=== PATIENT | male | born 1990 | race Caucasian/White ===

== ENCOUNTER 2025-07-07 06:54 | Emergency (ER) | payer SELFPAY ==
--- NOTE | ~2025-07-07 | CT_ITS ---
EXAMINATION: CT abdomen pelvis w con DATE: 07/07/2025 08:09 INDICATION: Lower abdominal pain, nausea, vomiting and diarrhea TECHNIQUE: Computed tomography (CT) of the abdomen and pelvis was performed with 100 mL Omnipaque-350 intravenous contrast. Automated exposure control and iterative reconstruction technique were employed. The dose-length product was 466.12 mGy-cm. COMPARISON: None FINDINGS: Lung bases are clear. Heart size is normal. No pericardial or pleural effusion. Focal hepatic steatosis ligamentum teres. Gallbladder, spleen, pancreas, bilateral adrenal glands and kidneys are normal. Liquid stool in the colon consistent with provided history of diarrhea. No abnormal bowel wall thickening or obstruction. Normal appendix. Bladder is normal. No free intraperitoneal gas or fluid. No pathologically enlarged abdominal or pelvic lymphadenopathy. Mild lower thoracic spondylosis. IMPRESSION: 1. Diarrhea. No other acute intra-abdominal/pelvic process with normal appendix. Reviewed, dictated and finalized at location A. IMPRESSION: 1. Diarrhea. No other acute intra-abdominal/pelvic process with normal appendix .
[2025-07-07 06:54] VITALS: BP 130/87; PULSE 60; RESP 18; TEMP 36.9; O2SAT 98
--- NOTE | 2025-07-07 07:13 | ED.ABDPAIN ---
HPI - Abdominal Pain General Chief Complaint: Abdominal Pain <Jasmine Womack MD - Last Filed: 07/07/25 08:59> Stated Complaint: abdominal pain <Jasmine Womack MD - Last Filed: 07/07/25 08:59> Time Seen by Provider: 07/07/25 07:13 <Jasmine Womack MD - Last Filed: 07/07/25 08:59> Source: patient and family <Jasmine Womack MD - Last Filed: 07/07/25 08:59> Mode of arrival: ambulatory <Jasmine Womack MD - Last Filed: 07/07/25 08:59> Limitations: no limitations <Jasmine Womack MD - Last Filed: 07/07/25 08:59> History of Present Illness HPI narrative: 34 years old white male came to the ED by private car with his mom complaining of diffuse lower abdominal pain started 2 days ago, sharp, stabbing, steady, no aggravating or relieving factors, associated with nausea and vomiting. He denies any fever or chills or upper respiratory symptoms. Patient denies any history of abdominal surgery History of bipolar and ADHD. Patient does not smoke cigarette, does not drink alcohol, uses marijuana almost daily. <Jasmine Womack MD - Last Filed: 07/07/25 08:59> Related Data Allergies/Adverse Reactions: Allergies Allergy/AdvReac Type Severity Reaction Status Date / Time No Known Allergies Allergy Verified 07/07/25 07:21 <Jasmine Womack MD - Last Filed: 07/07/25 08:59> Review of Systems Review of Systems: All systems reviewed & are unremarkable except as noted in HPI and below <Jasmine Womack MD - Last Filed: 07/07/25 08:59> Exam Narrative: General appearance: Well-developed, well-nourished Skin: Normal color Head: Normocephalic, nontraumatic Eyes: Clear conjunctiva ENT: Oropharynx normal, ears normal, nose normal Neck: Supple, nontender Chest and respiratory: Airway patent, no respiratory distress, no accessory muscle use Heart: Regular rate/rhythm Abdomen: Soft, Mild diffuse tenderness lower abdomen, no guarding or rebound, no organomegaly, quiet bowel sounds Vascular: Normal peripheral pulses, normal capillary refill. Musculoskeletal: Normal range of motion, nontender back Neurologic: Alert and oriented ?3, [employer] is normal as tested, no gross motor deficit <Jasmine Womack MD - Last Filed: 07/07/25 08:59> Course Consultations Consultation #1: PATIENT CARE TURNED OVER TO DR. Moreau AT SHIFT CHANGE, AWAITING LABS, IMAGING, DISPOSITION. PATIENT BEEN RESTING QUIETLY IN THE EMERGENCY ROOM WITHOUT ANY ISSUES OR PROBLEMS. <Jasmine Womack MD - Last Filed: 07/07/25 08:59> Date: 07/07/25 <Jasmine Womack MD - Last Filed: 07/07/25 08:59> Time: 09:00 <Jasmine Womack MD - Last Filed: 07/07/25 08:59> Vital Signs Vital signs: Vital Signs Temperature 36.9 C 07/07/25 06:54 Pulse Rate 60 07/07/25 06:54 Respiratory Rate 18 07/07/25 06:54 Blood Pressure 130/87 07/07/25 06:54 Pulse Oximetry 98 07/07/25 06:54 Oxygen Delivery Room Air 07/07/25 06:54 Temperature 36.9 C 07/07/25 06:54 Pulse Rate 62 07/07/25 09:15 Respiratory Rate 16 07/07/25 09:15 Blood Pressure 114/65 07/07/25 09:15 Pulse Oximetry 99 07/07/25 09:15 Oxygen Delivery Room Air 07/07/25 09:15 <Jasmine Womack MD - Last Filed: 07/07/25 08:59> Vital Signs Temperature 36.9 C 07/07/25 06:54 Pulse Rate 60 07/07/25 06:54 Respiratory Rate 18 07/07/25 06:54 Blood Pressure 130/87 07/07/25 06:54 Pulse Oximetry 98 07/07/25 06:54 Oxygen Delivery Room Air 07/07/25 06:54 Temperature 36.9 C 07/07/25 06:54 Pulse Rate 62 07/07/25 09:15 Respiratory Rate 16 07/07/25 09:15 Blood Pressure 114/65 07/07/25 09:15 Pulse Oximetry 99 07/07/25 09:15 Oxygen Delivery Room Air 07/07/25 09:15 <Dung Ott MD - Last Filed: 07/07/25 10:53> MDM - Abdominal Pain MDM Narrative Medical decision making narrative: patient came to the ED with lower abdominal pain Vital signs are stable Physical examination showing [id number] tenderness of the lower abdomen otherwise insignificant Differential diagnosis includes urinary tract infection, kidney stone, diverticulitis, colitis, constipation, appendicitis, anxiety like symptoms, dehydration or electrolyte imbalance <Jasmine Womack MD - Last Filed: 07/07/25 08:59> Differential Diagnosis Differential diagnosis: Likely other ( as above) <Jasmine Wmoack MD - Last Filed: 07/07/25 08:59> Lab Data Result diagrams: 07/07/25 07:28 07/07/25 07:28 <Jasmine Womack MD - Last Filed: 07/07/25 08:59> Labs: Lab Results 07/07/25 07/07/25 07/07/25 Range/Units 07:26 07:28 08:33 WBC 8.1 (4.8-10.8) K/mm3 RBC 5.16 (4.70-6.10) M/mm3 Hgb 14.8 (14.0-18.0) g/dL Hct 42.4 (40.0-54.0) % MCV 82.2 (78.0-102.0) fL MCH 28.7 (27.0-31.0) pg MCHC 34.9 (32-36) g/dL RDW 11.2 L (11.6-14.4) % Plt Count 281 (150-420) K/mm3 MPV 10.4 (8.7-11.0) fl Immature Gran % (Auto) 0.4 H (0.0-0.0) % Neut % (Auto) 73.7 H (50.0-70.0) % Lymph % (Auto) 19.8 (18.0-42.0) % Frederick % (Auto) 5.7 (2.0-11.0) % Eos % (Auto) 0.2 L (1.0-6.0) % Baso % (Auto) 0.2 (0.0-1.0) % Lymph # (Auto) 1.60 (1.10-4.50) K/mm3 Frederick # (Auto) 0.46 (0.10-0.90) K/mm3 Eos # (Auto) 0.02 (0.02-0.50) K/mm3 Baso # (Auto) 0.02 (0.00-0.10) K/mm3 Abs Immat Gran (auto) 0.03 H (0.00-0.00) K/mm3 Absolute Neuts (auto) 5.96 (1.70-7.20) K/mm3 Absolute Nucleated RBC 0.00 (0.00-0.00) K/mm3 Nucleated RBC % 0.0 (0-0.0) % Sodium 140 (137-145) mmol/L Potassium 3.6 (3.4-5.0) mmol/L Chloride 105 (98-107) mmol/L Carbon Dioxide 24 (22-30) mmol/L Anion Gap 11 (4-12) mmol/L BUN 10 (9-20) mg/dL Creatinine 0.98 (0.7-1.3) mg/dL Estim Creat Clear Calc 102 ml/min Estimated GFR > 60 (59 - ) Glucose 120 H (65-110) mg/dL Calculated Osmolality 290 (285-295) mOsm/kg Calcium 10.2 (8.4-10.2) mg/dL Total Bilirubin 1.0 (0.2-1.3) mg/dL AST 24 (17-59) U/L ALT 18 (6-50) U/L Alkaline Phosphatase 67 (38-126) U/L Total Protein 7.3 (6.3-8.2) g/dL Albumin 4.5 (3.5-5.1) g/dL Lipase 189 (23-300) U/L Urine Color Yellow (Yellow) Urine Appearance Clear (Clear) Urine pH 7.5 (5.0-8.0) Ur Specific [place] 1.010 (1.010-1.020) Urine Protein Negative (Negative) Urine Glucose (UA) Negative (Negative) Urine Ketones 1+ H (Negative) Ur Blood (Man) Negative (Negative) Urine Nitrate Negative (Negative) Urine Bilirubin Negative (Negative) Urine Urobilinogen 0.2 (0.2-1.0) mg/dL Leukocyte Esterase Rfl Negative (Negative) GABRIELA/UL Influenza A (RT-PCR) Negative (Negative) Influenza B (RT-PCR) Negative (Negative) RSV (RT-PCR) Negative (Negative) SARS-CoV-2 RNA (RT-PCR) Negative (Negative) <Jasmine Womack MD - Last Filed: 07/07/25 08:59> Lab Results 07/07/25 07/07/25 07/07/25 Range/Units 07:26 07:28 08:33 WBC 8.1 (4.8-10.8) K/mm3 RBC 5.16 (4.70-6.10) M/mm3 Hgb 14.8 (14.0-18.0) g/dL Hct 42.4 (40.0-54.0) % MCV 82.2 (78.0-102.0) fL MCH 28.7 (27.0-31.0) pg MCHC 34.9 (32-36) g/dL RDW 11.2 L (11.6-14.4) % Plt Count 281 (150-420) K/mm3 MPV 10.4 (8.7-11.0) fl Immature Gran % (Auto) 0.4 H (0.0-0.0) % Neut % (Auto) 73.7 H (50.0-70.0) % Lymph % (Auto) 19.8 (18.0-42.0) % Frederick % (Auto) 5.7 (2.0-11.0) % Eos % (Auto) 0.2 L (1.0-6.0) % Baso % (Auto) 0.2 (0.0-1.0) % Lymph # (Auto) 1.60 (1.10-4.50) K/mm3 Frederick # (Auto) 0.46 (0.10-0.90) K/mm3 Eos # (Auto) 0.02 (0.02-0.50) K/mm3 Baso # (Auto) 0.02 (0.00-0.10) K/mm3 Abs Immat Gran (auto) 0.03 H (0.00-0.00) K/mm3 Absolute Neuts (auto) 5.96 (1.70-7.20) K/mm3 Absolute Nucleated RBC 0.00 (0.00-0.00) K/mm3 Nucleated RBC % 0.0 (0-0.0) % Sodium 140 (137-145) mmol/L Potassium 3.6 (3.4-5.0) mmol/L Chloride 105 (98-107) mmol/L Carbon Dioxide 24 (22-30) mmol/L Anion Gap 11 (4-12) mmol/L BUN 10 (9-20) mg/dL Creatinine 0.98 (0.7-1.3) mg/dL Estim Creat Clear Calc 102 ml/min Estimated GFR > 60 (59 - ) Glucose 120 H (65-110) mg/dL Calculated Osmolality 290 (285-295) mOsm/kg Calcium 10.2 (8.4-10.2) mg/dL Total Bilirubin 1.0 (0.2-1.3) mg/dL AST 24 (17-59) U/L ALT 18 (6-50) U/L Alkaline Phosphatase 67 (38-126) U/L Total Protein 7.3 (6.3-8.2) g/dL Albumin 4.5 (3.5-5.1) g/dL Lipase 189 (23-300) U/L Urine Color Yellow (Yellow) Urine Appearance Clear (Clear) Urine pH 7.5 (5.0-8.0) Ur Specific [place] 1.010 (1.010-1.020) Urine Protein Negative (Negative) Urine Glucose (UA) Negative (Negative) Urine Ketones 1+ H (Negative) Ur Blood (Man) Negative (Negative) Urine Nitrate Negative (Negative) Urine Bilirubin Negative (Negative) Urine Urobilinogen 0.2 (0.2-1.0) mg/dL Leukocyte Esterase Rfl Negative (Negative) GABRIELA/UL Influenza A (RT-PCR) Negative (Negative) Influenza B (RT-PCR) Negative (Negative) RSV (RT-PCR) Negative (Negative) SARS-CoV-2 RNA (RT-PCR) Negative (Negative) <Dung Ott MD - Last Filed: 07/07/25 10:53> Imaging Data Attestation: I personally reviewed and interpreted this imaging study as follows: <Dung Ott MD - Last Filed: 07/07/25 10:53> Radiologist's impression: ITS Impressions Abdomen/Pelvis CT 07/07/25 10:30 IMPRESSION: 1. Diarrhea. No other acute intra-abdominal/pelvic process with normal appendix. <Jasmine Womack MD - Last Filed: 07/07/25 08:59> ITS Impressions Abdomen/Pelvis CT 07/07/25 10:30 IMPRESSION: 1. Diarrhea. No other acute intra-abdominal/pelvic process with normal appendix. <Dung Ott MD - Last Filed: 07/07/25 10:53> Critical Care Time Critical Care Time Critical Care Time: No <Jasmine Womack MD - Last Filed: 07/07/25 08:59> Discharge Plan Discharge Clinical Impression: Gastroenteritis, Acute dehydration <Jasmine Womack MD - Last Filed: 07/07/25 08:59> Patient Disposition: Home <Jasmine Womack MD - Last Filed: 07/07/25 08:59> Condition: Stable <Jasmine Womack MD - Last Filed: 07/07/25 08:59> Instructions: Dehydration (ED), Gastroenteritis (ED) <Jasmine Womack MD - Last Filed: 07/07/25 08:59> Patient Language: Irish <Jasmine Womack MD - Last Filed: 07/07/25 08:59> Follow-up/Referrals: UNKNOWN,DOCTOR [Non-Staff] <Jasmine Womack MD - Last Filed: 07/07/25 08:59> Stand Alone Forms: Work/School Release IP <Jasmine oWmack MD - Last Filed: 07/07/25 08:59> Time of Disposition: 10:51 <Jasmine Womack MD - Last Filed: 07/07/25 08:59> 10:51 <Dung Ott MD - Last Filed: 07/07/25 10:53>
[2025-07-07] MEDS: ONDANSETRON INJ 4 MG/2 ML VIAL IV PUSH ×2 (07:33→09:28)
[2025-07-07] MEDS: MORPHINE SULFATE (*CRX) 4 MG/ML INJ IV PUSH ×2 (07:34→09:27)
[2025-07-07] MEDS: SODIUM CHLORIDE 0.9% IV 1,000 ML 999 ML IV CONT (07:34)
[2025-07-07 07:37] LABS: Hematocrit 42.4 % (40.0-54.0); Hemoglobin 14.8 g/dL (14.0-18.0); Immature Granulocyte Percent A 0.4 % (0.0-0.0); Lymphocytes Absolute Auto 1.60 K/mm3 (1.10-4.50); Mean Corpuscular HGB Conc 34.9 g/dL (32-36); Mean Corpuscular Hemoglobin 28.7 pg (27.0-31.0); Mean Corpuscular Volume 82.2 fL (78.0-102.0); Nucleated Red Blood Cells Absolute Auto 0.00 K/mm3 (0.00-0.00); Nucleated Red Blood Cells Perc 0.0 % (0-0.0); Platelet Count Result 281 K/mm3 (150-420); Red Blood Count 5.16 M/mm3 (4.70-6.10); White Blood Count 8.1 K/mm3 (4.8-10.8)
[2025-07-07 07:48] LABS: Alanine Aminotransferase 18 U/L (6-50); Albumin Level 4.5 g/dL (3.5-5.1); Alkaline Phosphatase 67 U/L (38-126); Anion Gap 11 mmol/L (4-12); Aspartate Amino Transferase 24 U/L (17-59); Bilirubin,Total 1.0 mg/dL (0.2-1.3); Blood Urea Nitrogen 10 mg/dL (9-20); Calcium 10.2 mg/dL (8.4-10.2); Carbon Dioxide 24 mmol/L (22-30); Chloride 105 mmol/L (98-107); Estimated CRCL calculation 102 ml/min; Estimated Glomerular Filt Rate > 60; Glucose 120 mg/dL (65-110); Lipase 189 U/L (23-300); Osmolality Calculated 290 mOsm/kg (285-295); Potassium 3.6 mmol/L (3.4-5.0); Sodium 140 mmol/L (137-145); Total Protein 7.3 g/dL (6.3-8.2)
--- NOTE | 2025-07-07 07:52 | PC.NURSE ---
Pt to CT scanner with radiology transport.
[2025-07-07 08:25] LABS: Influenza A QL RT-PCR Negative (Negative); Influenza B QL RT-PCR Negative (Negative); RSV RNA, RT-PCR Negative (Negative); SARS-CoV-2 RNA PCR Negative (Negative)
[2025-07-07 08:45] LABS: Add Urine Microscopic? NO; Appearance Urine Clear (Clear); Glucose Urine UA Negative (Negative); Leukocyte Esterase Ur Negative LEU/UL (Negative); Nitrate Urine Negative (Negative); Specific Grav Ur 1.010 (1.010-1.020)
--- NOTE | 2025-07-07 09:11 | PC.NURSE ---
RN call radiology to see ETA on CT read. Radiology states that they will call radiologist on-call and call back with an ETA.
[2025-07-07 09:15] VITALS: BP 114/65; PULSE 62; RESP 16; O2SAT 99
[2025-07-07 09:40] VITALS: BP 109/62; PULSE 57; RESP 17; O2SAT 96
[2025-07-07 10:00] VITALS: BP 99/60; PULSE 58; RESP 16; O2SAT 96
[2025-07-07 10:30] VITALS: BP 108/64; PULSE 58; RESP 17; O2SAT 97
[2025-07-07 10:55] VITALS: BP 108/64; PULSE 58; RESP 17; TEMP 36.8; O2SAT 97
== END 2025-07-07 10:55 | disposition home or self-care (01) ==
PROVIDERS: Emergency Provider Emergency Medicine; PCP Family Medicine
DX: K52.9 Noninfective gastroenteritis and colitis, unspecified (principal); E86.0 Dehydration; Z20.822 Contact with and (suspected) exposure to COVID-19
CPT/HCPCS: 36415; 74177; 80053; 81003; 83690; 85025; 87637; 96361; 96374; 96375; 96376; 99284; J2270; J2405; J7030; Q9967